=== PATIENT | female | born 1970 | race Caucasian/White ===

== ENCOUNTER → 2016-08-26 | Outpatient (REF) | payer BC | LOC: M LAB REF 16:46 | PROVIDERS: ATTEND Family Medicine | DX: R32 Unspecified urinary incontinence (principal) ==

== ENCOUNTER → 2016-11-01 | Outpatient (REF) | payer BC ==
[2016-11-01 13:32] LABS: CALCIUM OXALATE CRYSTALS SMALL
== END ==
LOC: M LAB REF 13:05
PROVIDERS: ATTEND Obstetrics & Gynecology
DX: N39.46 Mixed incontinence (principal); R39.14 Feeling of incomplete bladder emptying

== ENCOUNTER → 2016-11-27 | Day surgery (SDC) | payer BC ==
[~2016-11-27] VITALS: Ht 149.9 cm; Wt 56.2 kg
[~2016-11-27] MED LIST: ACYC1CAP8 PO; BICITRA 30ML SOLN UDC As Ordered ONE; BICITRA 30ML SOLN UDC PO ONE; BOTULINUM INJ 100 UNITS (J0585) As Ordered ONE; BOTULINUM INJ 100 UNITS (J0585) XX ONE; IBUPROFEN 600 MG TAB PO PRN; LIDOCAINE 1% MDV 20ML VIAL SQ ONE; LIDOCAINE 2% INJ 100 MG/5 ML SDV (FOR ANES.) As Ordered ONE; LR 1,000 ML IV ONE; LR 1,000 ML IV SCH; METOCLOPRAMIDE INJ 10MG/2ML VIAL (J2765) As Ordered ONE; METOCLOPRAMIDE INJ 10MG/2ML VIAL (J2765) IV PRN; MIDAZOLAM INJ 2 MG/2 ML VIAL (J2250) As Ordered ONE; NAPR-26 PO; ONDANSETRON 4MG/2ML VIAL (J2405) As Ordered ONE; ONDANSETRON 4MG/2ML VIAL (J2405) IV PRN; PROPOFOL 200 MG/20 ML VIAL As Ordered ONE; ROCURONIUM BROMIDE 50 MG/5 ML VIAL As Ordered ONE; SUCCINYLCHOLINE 100 MG/5 ML SYRINGE (J0330) As Ordered ONE; VITA500046 PO; ceFAZolin SOD 1 GM in D5W MINI-BAG PLUS 50 ML IV ONE; ePHEDrine SULFATE 25 MG/5 ML(5MG/ML) SYRINGE As Ordered ONE; fentaNYL 100 MCG/2 ML INJECTION (J3010) As Ordered ONE; fentaNYL 100 MCG/2 ML INJECTION (J3010) IV PRN
[2016-11-27 18:10] VITALS: BP 119/57
--- NOTE | 2016-11-28 15:00 | RO ---
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 PROCEDURE: Cystourethroscopy with hydrodistention. She had a total of 2 minutes of distention carefully watched on the clock as well as injection of 100 units of Botox A, which had been diluted into 10 mL of fluid so 0.5 mL aliquots were placed, and she had cautery of her Hunner's lesions. SURGEON: Keily Solano MD FINANCIAL MANAGEMENT: There was no welder assistant for this case. ANESTHESIA: General endotracheal. BRIEF DESCRIPTION OF PROCEDURE AND FINDINGS: Joe was brought to the operating room where sufficient endotracheal anesthesia was induced and she was prepped, draped, and positioned in the usual sterile fashion with the cystoscope placed and the bladder visualized. She had normal ureteral orifices and a normal trigone, but over the lower bladder there were multiple Hunner's lesions, not really so many at the dome, really just beyond the trigone, both central and left and right side, but more to the patient's left side; and while the Botox was being mixed up and the Bugbee being arranged for cautery of those lesions, the hydrodistention was undertaken and we distended the bladder and held it under distention for 2 minutes. The bladder did have a spasm. She started to leak around the scope during this time. We removed the scope after the bladder had emptied a little bit and then put some pressure on the urethra so that she could have some hydrodistention and then replaced the scope and drained the bladder and refilled it for view, not of course as full as full distention. We then injected the 100 units of Botox A into the bladder in 0.5 mL aliquots. This had been diluted in 10 mL of fluid. We then used normal saline to tre the Botox out of the needle so that all of the Botox was injected. After the injection, the Bugbee had been set up and we used it to cauterize her Hunner's lesions, as is documented in the operative photos. Then, having done that, we completed the procedure and allowed the bladder to empty. ESTIMATED BLOOD LOSS FOR THIS PROCEDURE: 0 mL. FLUID REPLACEMENT: Crystalloid. COMPLICATIONS: None. CONDITION AND DISPOSITION: Joe tolerated the procedure well and was recovering in the recovery room in good condition.
== END | disposition home or self-care (01) ==
LOC: M SDC 14:40
PROVIDERS: ATTEND Obstetrics & Gynecology
DX: N32.81 Overactive bladder (principal); N30.10 Interstitial cystitis (chronic) without hematuria; J45.909 Unspecified asthma, uncomplicated; K21.9 Gastro-esophageal reflux disease without esophagitis; Z79.899 Other long term (current) drug therapy; Z88.0 Allergy status to penicillin; Z88.2 Allergy status to sulfonamides
CPT/HCPCS: 52260; 52287; J0330; J0585; J0690; J2250; J2405; J2765; J3010; L8606

== ENCOUNTER → 2016-12-11 | Outpatient (REF) | payer BC ==
[~2016-12-11] MED LIST changes: -BICITRA 30ML SOLN UDC As Ordered ONE; -BICITRA 30ML SOLN UDC PO ONE; -BOTULINUM INJ 100 UNITS (J0585) As Ordered ONE; -BOTULINUM INJ 100 UNITS (J0585) XX ONE; -IBUPROFEN 600 MG TAB PO PRN; -LIDOCAINE 1% MDV 20ML VIAL SQ ONE; -LIDOCAINE 2% INJ 100 MG/5 ML SDV (FOR ANES.) As Ordered ONE; -LR 1,000 ML IV ONE; -LR 1,000 ML IV SCH; -METOCLOPRAMIDE INJ 10MG/2ML VIAL (J2765) As Ordered ONE; -METOCLOPRAMIDE INJ 10MG/2ML VIAL (J2765) IV PRN; -MIDAZOLAM INJ 2 MG/2 ML VIAL (J2250) As Ordered ONE; -ONDANSETRON 4MG/2ML VIAL (J2405) As Ordered ONE; -ONDANSETRON 4MG/2ML VIAL (J2405) IV PRN; -PROPOFOL 200 MG/20 ML VIAL As Ordered ONE; -ROCURONIUM BROMIDE 50 MG/5 ML VIAL As Ordered ONE; -SUCCINYLCHOLINE 100 MG/5 ML SYRINGE (J0330) As Ordered ONE; -ceFAZolin SOD 1 GM in D5W MINI-BAG PLUS 50 ML IV ONE; -ePHEDrine SULFATE 25 MG/5 ML(5MG/ML) SYRINGE As Ordered ONE; -fentaNYL 100 MCG/2 ML INJECTION (J3010) As Ordered ONE; -fentaNYL 100 MCG/2 ML INJECTION (J3010) IV PRN
== END ==
LOC: M LAB REF 12:59
PROVIDERS: ATTEND Nurse Practitioner Women's Health
DX: N39.0 Urinary tract infection, site not specified (principal)

== ENCOUNTER → 2017-08-14 | Outpatient (CLI) | payer BC ==
[2017-08-14 12:59] LABS: BASO % 0.3 % (0.0-1.0); EOS # 0.1 10^3/uL (0.0-0.50); EOS % 0.9 % (0.0-3.0); HEMATOCRIT 40.7 % (36.0-47.0); HEMOGLOBIN 13.5 g/dl (12.0-16.0); IMMATURE GRANULOCYTE % 0.2 % (0-3.0); LYMPH # 1.5 10^3/uL (1.5-4.5); LYMPH % 26.6 % (24.0-44.0); MEAN CORPUSCULAR HEMOGLOBIN 31.3 pg (27.0-33.0); MEAN CORPUSCULAR HGB CONC 33.2 g/dl (32.0-36.5); MEAN CORPUSCULAR VOLUME 94.2 fl (80.0-96.0); MONO # 0.4 10^3/uL (0.0-0.8); MONO % 6.7 % (0.0-5.0); NEUTROPHILS # 3.8 10^3/uL (1.8-7.7); NEUTROPHILS % 65.3 % (36.0-66.0); PLATELET COUNT, AUTOMATED 242 10^3/uL (150-450); RED BLOOD COUNT 4.32 10^6/uL (4.00-5.40); RED CELL DISTRIBUTION WIDTH 12.6 % (11.5-14.5); WHITE BLOOD COUNT 5.8 10^3/uL (4.0-10.0)
[2017-08-14 14:01] LABS: ALBUMIN 4.3 GM/DL (3.2-5.2); ALKALINE PHOSPHATASE 33 U/L (45-117); BLOOD UREA NITROGEN 16 MG/DL (7-18); CALCIUM LEVEL 9.3 MG/DL (8.5-10.1); CARBON DIOXIDE LEVEL 28 MEQ/L (21-32); CHLORIDE LEVEL 106 MEQ/L (98-107); CREATININE FOR GFR 0.64 MG/DL (0.55-1.30); GLUCOSE, FASTING 90 MG/DL (70-100); SODIUM LEVEL 141 MEQ/L (136-145); TOTAL PROTEIN 6.7 GM/DL (6.4-8.2)
[2017-08-14 14:20] LABS: ALT/SGPT 20 U/L (12-78); AST/SGOT 13 U/L (7-37)
[2017-08-14 14:55] LABS: ANION GAP 7 MEQ/L (8-16)
[2017-08-14 14:56] LABS: ALBUMIN/GLOBULIN RATIO 1.79 (1.00-1.93)
== END ==
LOC: M SMT 11:19
DX: N23 Unspecified renal colic (principal)
CPT/HCPCS: 80053

== ENCOUNTER → 2017-08-15 | Outpatient (REF) | payer BC ==
[2017-08-15 13:24] LABS: COLOR, URINE MANUAL YELLOW (YELLOW)
[2017-08-15 13:25] LABS: APPEARANCE, URINE MANUAL CLEAR (CLEAR); BILIRUBIN, URINE MANUAL NEGATIVE (NEGATIVE); BLOOD URINE MANUAL NEGATIVE (NEGATIVE); GLUCOSE, URINE (UA) MANUAL NEGATIVE (NEGATIVE); KETONE, URINE MANUAL 2+ mg/dL (NEGATIVE); LEUKOCYTE ESTERASE, URINE MAN NEGATIVE (NEGATIVE); MICROSCOPIC INDICATED? MAN NO (NO); NITRITE, URINE MANUAL NEGATIVE (NEGATIVE); PROTEIN, URINE MANUAL NEGATIVE (NEGATIVE); SPECIFIC GRAVITY,URINE MANUAL 1.025 (1.002-1.035); UROBILINOGEN, URINE MANUAL NORMAL (NORMAL)
== END ==
LOC: M LAB REF 12:57
DX: R80.0 Isolated proteinuria (principal); R82.4 Acetonuria
CPT/HCPCS: 81002